=== PATIENT | female | born 1980 | race Hispanic/Latino ===

== ENCOUNTER 2020-04-27 19:59 | Emergency (ER) | payer SELFPAY ==
--- OUTSIDE RECORDS SUMMARY | 2020-04-27 20:01 | XMS REPORT | Continuity of Care Document ---
:1980 Author Organization [facility] t Address [address] [place] [address] Care Team Providers Name Role Phone Unavailable Unavailable Unavailable Problems This patient has no known problems. Allergies, Adverse Reactions, Alerts This patient has no known allergies or adverse reactions. Medications This patient has no known medications. Procedures This patient has no known procedures. Results This patient has no known results.
[2020-04-27] MEDS ORDERED: NA CHLORIDE 0.9% 250 ML ONE (20:43)
[2020-04-27] MEDS ORDERED: NA CHLORIDE 0.9% 0 ML ONE (20:43)
[2020-04-27] MEDS ORDERED: CEFTRIAXONE/SWI 1gm 1 GM/10 ML SYR ONE (20:43)
[2020-04-27] MEDS ORDERED: AZITHROMYCIN 500 MG INJ IVPB ONE (20:43)
[2020-04-27] MEDS ORDERED: dexAMETHasone 10 MG/ML VIAL ONE ×2 (20:43→21:33)
[2020-04-27] MEDS ORDERED: ACETAMINOPHEN 325 MG TABLET ONE (20:43)
[2020-04-27 21:02] LABS: Basophils % 0.4 % (0-1.3); Hematocrit 40.4 % (36.0-45.0); Lymphocytes % 16.7 % (15.3-44.8); MPV 8.5 fL (7.6-11.3); RBC Red Blood Cell Count 4.45 M/uL (3.86-4.86)
[2020-04-27 21:18] LABS: ALT/SGPT 42 U/L (12-78); AST/SGOT 25 U/L (15-37); Albumin 3.1 g/dL (3.4-5.0); Alkaline Phosphatase 130 U/L (45-117); BUN Blood Urea Nitrogen 9 mg/dL (7-18); Bicarbonate 25 mmol/L (21-32); Bilirubin Direct 0.1 mg/dL (0-0.2); Bilirubin Total 0.4 mg/dL (0.2-1.0); Glucose Level 247 mg/dL (74-106); Magnesium 1.9 mg/dL (1.8-2.4); NT PRO-BNP 14 pg/mL (<125); Protein, Total 8.3 g/dL (6.4-8.2); Sodium Level 136 mmol/L (136-145); Troponin (Emerg Dept Use Only) < 0.02 ng/mL (0.0-0.045)
[2020-04-27] MEDS ORDERED: ALBUTEROL INHALER 60 PUFF/8 GM IH ONE (21:18)
[2020-04-27] MEDS ORDERED: ASPIRIN EC 81 MG TAB PO ONE (21:18)
[2020-04-27] MEDS ORDERED: HYDROCODONE/CHLORPHEN 5 ML/OSYR ONE (21:18)
[2020-04-27] MEDS ORDERED: NA CHLORIDE 0.9% 1,000 ML ONE (21:18)
[2020-04-27] MEDS ORDERED: FAMOTIDINE 20 MG/2 ML VIAL IV ONE (21:18)
--- NOTE | 2020-04-27 21:18 | RAD REPORT ---
EXAM DESCRIPTION: RAD - Chest Single View - 04/27/2020 9:02 pm CLINICAL HISTORY: COUGH, shortness of breath, chest pain COMPARISON: None TECHNIQUE: AP portable chest image was obtained 04/27/2020 9:02 pm . FINDINGS: Lung volumes are very low. Lung base atelectasis present bilaterally. Lung markings are ac centuated. No convincing evidence for infiltrate. Heart and vasculature are normal. No measurable ple ural effusion and no pneumothorax. No acute bony abnormality seen. No acute aortic findings suspected . IMPRESSION: Limited portable study showing shallow inspiration and lung base atelectasis. Minimal infiltrates could be obscured. Repeat imaging with improved inspiratory effort could be perfo rmed as warranted.
--- NOTE | 2020-04-27 23:11 | EDPHYS ---
Physician Documentation [facility] Name: Carol Polo Age: 39 yrs Sex: Female : 1980 Arrival Date: 04/27/2020 Time: 20:09 Bed 18 Private MD: ED Physician Clayton Lorenzo HPI: 04/27 20:51 This 39 yrs old Female presents to ER via Ambulatory with complaints of lenin Shortness Of Breath, Chest Pain. 20:51 The patient has shortness of breath at rest, with light activity. Onset: The lenin symptoms/episode began/occurred gradually, 3 day(s) ago. Duration: The symptoms are continuous, and are steadily getting worse. The patient's shortness of breath is aggravated by coughing. Associated signs and symptoms: Pertinent positives: chest pain, non-productive cough, fever. Severity of symptoms: At their worst the symptoms were mild moderate in the emergency department the symptoms are unchanged. The patient has not experienced similar symptoms in the past. ICU CLERK: 23:29 LMP N/A - control method ks7 Historical: - Allergies: 20:18 No Known Allergies; mg2 - Home Meds: 20:19 levemir [Active]; lantus [Active]; Lisinopril Oral [Active]; amlodipine oral [Active]; mg2 Iron CR Oral [Active]; - PMHx: 20:18 Hypertension; Hyperlipidemia; Diabetes - IDDM; mg2 - PSHx: 20:18 ; mg2 - Immunization history:: Flu vaccine is up to date. - Social history:: Smoking status: Patient denies any tobacco usage or history of. Patient/guardian denies using alcohol, street drugs, IV drugs. ROS: 20:53 Eyes: Negative for injury, pain, redness, and discharge, ENT: Negative for injury, lenin pain, and discharge, Neck: Negative for injury, pain, and swelling, Abdomen/GI: Negative for abdominal pain, nausea, vomiting, diarrhea, and constipation, Back: Negative for injury and pain, : Negative for injury, bleeding, discharge, and swelling, MS/Extremity: Negative for injury and deformity, Skin: Negative for injury, rash, and discoloration, Neuro: Negative for headache, weakness, numbness, tingling, and seizure, Psych: Negative for depression, anxiety, suicide ideation, homicidal ideation, and hallucinations, Allergy/Immunology: Negative for hives, rash, and allergies, Endocrine: Negative for neck swelling, polydipsia, polyuria, polyphagia, and marked weight changes, Hematologic/Lymphatic: Negative for swollen nodes, abnormal bleeding, and unusual bruising. 20:53 Constitutional: Positive for body aches, chills, fatigue, fever, malaise. 20:53 Cardiovascular: Positive for chest pain, palpitations. 20:53 Respiratory: Positive for cough, with no reported sputum, shortness of breath. Exam: 20:53 Head/Face: Normocephalic, atraumatic. Eyes: Pupils equal round and reactive to light, lenin extra-ocular motions intact. Lids and lashes normal. Conjunctiva and sclera are non-icteric and not injected. Cornea within normal limits. Periorbital areas with no swelling, redness, or edema. ENT: Nares patent. No nasal discharge, no septal abnormalities noted. Tympanic membranes are normal and external auditory canals are clear. Oropharynx with no redness, swelling, or masses, exudates, or evidence of obstruction, uvula midline. Mucous membranes moist. Neck: Trachea midline, no thyromegaly or masses palpated, and no cervical lymphadenopathy. Supple, full range of motion without nuchal rigidity, or vertebral point tenderness. No Meningismus. Chest/axilla: Normal chest wall appearance and motion. Nontender with no deformity. No lesions are appreciated. Abdomen/GI: Soft, non-tender, with normal bowel sounds. No distension or tympany. No guarding or rebound. No evidence of tenderness throughout. Back: No spinal tenderness. No costovertebral tenderness. Full range of motion. Skin: Warm, dry with normal turgor. Normal color with no rashes, no lesions, and no evidence of cellulitis. MS/ Extremity: Pulses equal, no cyanosis. Neurovascular intact. Full, normal range of motion. Neuro: Awake and alert, GCS 15, oriented to person, place, time, and situation. Cranial nerves II-XII grossly intact. Motor strength 5/5 in all extremities. Sensory grossly intact. Cerebellar exam normal. Normal gait. Psych: Awake, alert, with orientation to person, place and time. Behavior, mood, and affect are within normal limits. 20:53 Constitutional: The patient appears febrile. 20:53 Cardiovascular: Rate: tachycardic, Rhythm: regular, Pulses: Pulses are 4+ in bilateral radial, brachial, femoral, popliteal, posterior tibial and and dorsalis pedis arteries.. Heart sounds: normal, Edema: is not appreciated, JVD: is not appreciated. 20:53 Respiratory: mild respiratory distress is noted, Respirations: labored breathing, that is mild, Breath sounds: rhonchi, that are mild, are scattered, Respiratory rate: 20 20:53 Musculoskeletal/extremity: DVT Exam: No signs of deep vein thrombosis. no pain, no swelling, no tenderness, negative Homans' sign noted on exam, no appreciated bluish discoloration, no erythema, no increased warmth. 21:07 ECG was reviewed by the Attending Physician. [facility] 23:07 Musculoskeletal/extremity: Exam is negative for Extremities: all appear grossly normal, lenin with no appreciated pain with palpation, ROM: no acute changes, intact in all extremities, full active range of motion, full passive range of motion, Circulation is intact in all extremities. Sensation intact. Compartment Syndrome exam of affected extremity: is normal. Vital Signs: 20:10 BP 136 / 98; Pulse 116; Resp 20; Temp 100.1; Pulse Ox 97% on R/A; Weight 90.72 kg; mg2 Height 5 ft. 5 in. (165.10 cm); 21:00 BP 139 / 87; Pulse 116; Resp 22; Pulse Ox 97% on R/A; Pain 7/10; ks7 21:01 BP 141 / 85; Pulse 117; Resp 22; Temp 100.1; Pulse Ox 97% on R/A; Pain 7/10; ks7 21:30 BP 133 / 81; Pulse 117; Resp 20; Pulse Ox 96% on R/A; Pain 7/10; ks7 22:00 BP 124 / 75; Pulse 124; Resp 20; Temp 99.9(O); Pulse Ox 96% ; Pain 3/10; ks7 23:13 BP 137 / 86; Pulse 107; Resp 18; Temp 99.3(O); Pulse Ox 95% on R/A; Pain 0/10; ks7 23:41 Pain 0/10; ks7 20:10 Body Mass Index 33.28 (90.72 kg, 165.10 cm) mg2 MDM: 20:17 Patient medically screened. [facility] 20:57 Data reviewed: vital signs, nurses notes, lab test result(s), EKG, radiologic studies, lenin plain films. 20:59 Differential diagnosis: asthma, Bronchitis CHF exacerbation, Chronic Obstructive lenin Pulmonary Disease bronchitis, flu, viral Infection, bacterial infection, URI, bronchitis, pneumonia pneumonia, pulmonary edema, Pulmonary Embolism reactive airway disease, Unstable Angina. Antibiotic administration: Rocephin and Zithromax given. The patient's Wells Deep Vein Thrombosis Score was calculated as follows: Total Score: 0-2 Pts- Low Risk. The patient's pulmonary embolism risk score was calculated as follows: Total Score: 0-2 points. This patient was found to be at low risk for a pulmonary embolism by using the Well's assessment criteria. Immunization status:. Data interpreted: monitoring coordinator: rate is 116 beats/min, rhythm is normal sinus rhythm, Pulse oximetry: on room air is 97 %. Test interpretation: by ED physician or midlevel provider: plain radiologic studies. Counseling: I had a detailed discussion with the patient and/or guardian regarding: the historical points, exam findings, and any diagnostic results supporting the discharge/admit diagnosis, lab results, radiology results, the need for outpatient follow up, for definitive care, a fitness management director. ED course: pt much impoved, sats 95%. 23:08 ED course: much improved, feeling better, plan explained, pt understands. [facility] 04/27 20:28 Order name: Basic Metabolic Panel [facility] 04/27 20:28 Order name: CBC with Diff [facility] 04/27 20:28 Order name: LFT's [facility] 04/27 20:28 Order name: Magnesium [facility] 04/27 20:28 Order name: NT PRO-BNP [facility] 04/27 20:28 Order name: Troponin (emerg Dept Use Only) [facility] 04/27 20:28 Order name: Blood Culture Adult (2) [facility] 04/27 20:28 Order name: COVID-19 [facility] 04/27 20:28 Order name: Lactate [facility] 04/27 20:28 Order name: Procalcitonin [facility] 04/27 20:28 Order name: D-Dimer [facility] 04/27 21:11 Order name: CBC with Automated Diff; Complete Time: 21:42 EDMS 04/27 21:16 Order name: Lactate; Complete Time: 21:42 EDMS 04/27 21:18 Order name: Basic Metabolic Panel; Complete Time: 21:42 EDMS 04/27 20:28 Order name: XRAY Chest (1 view) [facility] 04/27 21:10 Order name: INCENTIVE SPIROMETRY [facility] 04/27 21:18 Order name: Liver (Hepatic) Function; Complete Time: 21:42 EDCT 04/27 21:18 Order name: Troponin (Emerg Dept Use Only); Complete Time: 21:42 EDCT 04/27 21:18 Order name: NT PRO-BNP; Complete Time: 21:42 EDCT 04/27 21:18 Order name: Magnesium; Complete Time: 21:42 EDCT 04/27 21:18 Order name: RAD; Complete Time: 21:42 EDMS 04/27 23:07 Order name: D-Dimer; Complete Time: 23:45 EDCT 04/27 23:09 Order name: Procalcitonin; Complete Time: 23:45 [facility] 04/27 20:28 Order name: EKG; Complete Time: 20:29 [facility] 04/27 20:28 Order name: Cardiac monitoring; Complete Time: 20:56 [facility] 04/27 20:28 Order name: EKG - Nurse/Tech; Complete Time: 20:56 [facility] 04/27 20:28 Order name: IV Saline Lock; Complete Time: 20:56 [facility] 04/27 20:28 Order name: Labs collected and sent; Complete Time: 20:56 [facility] 04/27 20:28 Order name: O2 Per Protocol; Complete Time: 20:56 [facility] 04/27 20:28 Order name: O2 Sat Monitoring; Complete Time: 20:56 [facility] EC:07 Rate is 112 beats/min. Rhythm is regular. QRS [place] is Normal. [place] interval is normal. [facility] QRS interval is normal. QT interval is normal. No Q waves. T waves are Normal. No ST changes noted. Clinical impression: Sinus tachycardia and No evidence of ischemia. Interpreted by me. Reviewed by me. Administered Medications: Discontinued: NS 0.9% 500 ml IV at bolus once Discontinued: Zithromax 500 mg IVPB once over 1 hrs; mix in 250 mL NS Discontinued: Rocephin 1 grams IV at per protocol once; Given slow IV push per pharmacy instructions Discontinued: NS 0.9% 1000 ml IV at 125 ml/hr continuous 20:45 Drug: Tylenol 650 mg Route: PO; ks7 23:41 Follow up: Pain 0/10 Adult ks7 20:55 Drug: Rocephin 1 grams Route: IV; Rate: per protocol; Site: left antecubital; 21:21 Drug: NS 0.9% 500 ml Route: IV; Rate: bolus; Site: left antecubital; 21:25 Drug: NS 0.9% 1000 ml Route: IV; Rate: 125 ml/hr; Site: left antecubital; 21:25 Drug: Albuterol HFA Inhaler 4 puffs Route: Inhalation; :25 Drug: Tussionex Pennkinetic ER 5 ml Route: PO; :26 Drug: Aspirin 162 mg Route: PO; :27 Drug: Pepcid 20 mg Route: IVP; Site: left antecubital; : Drug: Zithromax 500 mg Route: IVPB; Infused Over: 1 hrs; Site: left antecubital; : Drug: Decadron - Dexamethasone 6 mg Route: IVP; Site: left antecubital; Disposition: 04/27/20 23:10 Discharged to Home. Impression: Dyspnea, SARS-associated coronavirus as the cause of diseases classified elsewhere, Fever, unspecified, Type 1 diabetes mellitus. - Condition is Stable. - Discharge Instructions: Type 1 Diabetes Mellitus, Diagnosis, Adult, Fever, Adult, Shortness of Breath, Shortness of Breath, [id number], Incentive Spirometer, Diabetes Mellitus and Food, Aspirin and Your Heart, Type 1 Diabetes Mellitus, Self Care, Adult, Type 1 Diabetes Mellitus, Diagnosis, Adult, [id number], COVID-19. - Prescriptions for dexamethasone 2 mg Oral tablet - take 1 tablet by ORAL route 3 times per day; 15 tablet. Pepcid 20 mg Oral Tablet - take 1 tablet by ORAL route every 12 hours for 10 days; 20 tablet. Albuterol Sulfate 90 mcg/actuation - inhale 1-2 puff by INHALATION route every 4-6 hours; 1 Inhaler. Zithromax 500 mg Oral Tablet - take 1 tablet by ORAL route once daily for 5 days; 5 tablet. - Medication Reconciliation Form, Thank You Letter, Antibiotic Education, Prescription Opioid Use form. - Follow up: Private Physician; When: 2 - 3 days; Reason: Recheck today's complaints, Continuance of care, Re-evaluation by your physician. Follow up: Fab Reddy; When: 2 - 3 days; Reason: Recheck today's complaints, Continuance of care, Re-evaluation by your physician. - Problem is new. - Symptoms have improved. Signatures: Dispatcher [employer] EDClayton Gan MD MD cha Gardose, Michele, RN RN mg2 Songcuan, Kathleen, RN RN ks7 Corrections: (The following items were deleted from the chart) 23:47 23:10 04/27/2020 23:10 Discharged to Home. Impression: Dyspnea; SARS-associated ks7 coronavirus as the cause of diseases classified elsewhere; Fever, unspecified; Type 1 diabetes mellitus. Condition is Stable. Discharge Instructions: Type 1 Diabetes Mellitus, Diagnosis, Adult, Fever, Adult, Shortness of Breath, Shortness of Breath, [id number], Diabetes Mellitus and Food, Aspirin and Your Heart, Type 1 Diabetes Mellitus, Self Care, Adult, Type 1 Diabetes Mellitus, Diagnosis, Adult, [id number], COVID-19, Incentive Spirometer. Prescriptions for dexamethasone 2 mg Oral tablet - take 1 tablet by ORAL route 3 times per day; 21 tablet, Pepcid 20 mg Oral Tablet - take 1 tablet by ORAL route every 12 hours for 10 days; 20 tablet, Albuterol Sulfate 90 mcg/actuation - inhale 1-2 puff by INHALATION route every 4-6 hours; 1 Inhaler, Zithromax 500 mg Oral Tablet - take 1 tablet by ORAL route once daily for 5 days; 5 tablet. and Forms are Medication Reconciliation Form, Thank You Letter, Antibiotic Education, Prescription Opioid Use. Follow up: Private Physician; When: 2 - 3 days; Reason: Recheck today's complaints, Continuance of care, Re-evaluation by your physician. Follow up: Fab Reddy; When: 2 - 3 days; Reason: Recheck today's complaints, Continuance of care, Re-evaluation by your physician. Problem is new. Symptoms have improved. lenin
--- NOTE | 2020-04-27 23:11 | ER ---
Nurse's Notes [facility] Name: Carol Polo Age: 39 yrs Sex: Female : 1980 Arrival Date: 04/27/2020 Time: 20:09 Bed 18 Private MD: Diagnosis: Dyspnea;SARS-associated coronavirus as the cause of diseases classified elsewhere;Fever, unspecified;Type 1 diabetes mellitus Presentation: 04/27 20:10 Chief complaint: Patient states: i have shortness of breath, chest pain, cough, and mg2 fever for 2 weeks. is covid positive tested last April 23. Coronavirus screen: Client denies travel out of the [place] in the last 14 days. cough unrelated to allergies, difficulty breathing, fever, shortness of breath, Client presents with at least one sign or symptom that may indicate coronavirus-19. Standard/surgical mask placed on the client. Provider contacted for isolation considerations. Ebola Screen: No symptoms or risks identified at this time. 20:10 Method Of Arrival: Ambulatory mg2 20:10 Initial Sepsis Screen: Does the patient meet any 2 criteria? Temp <36.0*C (96.8*F)) or mg2 > 38.3*C (100.9*F). HR > 90 bpm. Does the patient have a suspected source of infection? Yes: Productive cough/pneumonia. Risk Assessment: Do you want to hurt yourself or someone else? Patient reports no desire to harm self or others. Onset of symptoms was March 2020. 20:10 Acuity: IRENE 3 mg2 Triage Assessment: 20:30 General: Appears distressed, uncomfortable. Respiratory: Breath sounds are clear ks7 bilaterally. in right upper lobe and left upper lobe Breath sounds are diminished bilaterally. in left posterior lower lobe, right posterior middle lobe and right posterior lower lobe. Respiratory: Reports shortness of breath cough that is non-productive, pain with cough the patient has moderate shortness of breath. 23:44 General: Appears. ks7 [employer]: 23:29 LMP N/A - control method ks7 Historical: - Allergies: 20:18 No Known Allergies; mg2 - Home Meds: 20:19 levemir [Active]; lantus [Active]; Lisinopril Oral [Active]; amlodipine oral [Active]; mg2 Iron CR Oral [Active]; - PMHx: 20:18 Hypertension; Hyperlipidemia; Diabetes - IDDM; mg2 - PSHx: 20:18 ; mg2 - Immunization history:: Flu vaccine is up to date. - Social history:: Smoking status: Patient denies any tobacco usage or history of. Patient/guardian denies using alcohol, street drugs, IV drugs. Screenin:59 Abuse screen: Denies threats or abuse. Denies injuries from another. Nutritional ks7 screening: No deficits noted. Tuberculosis screening: No symptoms or risk factors identified. Fall Risk None identified. Assessment: 20:12 General: code sepsis 700 called. mg2 20:59 Pain: Complains of pain in chest Pain does not radiate. Pain currently is 7 out of 10 ks7 on a pain scale. Quality of pain is described as sharp, Pain began 2-3 days ago. Is continuous, Alleviated by rest, Aggravated by increased activity, cough deep breathing. Cardiovascular: Rhythm is regular. Respiratory: Airway is patent Respiratory effort is even, shallow, Breath sounds are clear bilaterally. in right upper lobe and left upper lobe Breath sounds are diminished bilaterally. in right middle lobe, left lower lobe, right lower lobe, left posterior lower lobe, right posterior middle lobe and right posterior lower lobe. 21:02 General: Appears uncomfortable, obese, . Behavior is cooperative, pt c/o increased sob, ks7 cp with cough and deep breathing, dry cough. pt tested positive for covid last week. pt sx started 3 days ago. pt aa0x4, MOSES, weak, body aches.. 21:37 Reassessment: Patient and/or family updated on plan of care and expected duration. Pain ks7 level reassessed. pt resting, no s/s of respiratory distress. 22:19 Reassessment: Patient and/or family updated on plan of care and expected duration. Pain ks7 level reassessed. Patient states feeling better. 23:30 Reassessment: Patient states feeling better. Patient states symptoms have improved. ks7 Vital Signs: 20:10 BP 136 / 98; Pulse 116; Resp 20; Temp 100.1; Pulse Ox 97% on R/A; Weight 90.72 kg; mg2 Height 5 ft. 5 in. (165.10 cm); 21:00 BP 139 / 87; Pulse 116; Resp 22; Pulse Ox 97% on R/A; Pain 7/10; ks7 21:01 BP 141 / 85; Pulse 117; Resp 22; Temp 100.1; Pulse Ox 97% on R/A; Pain 7/10; ks7 21:30 BP 133 / 81; Pulse 117; Resp 20; Pulse Ox 96% on R/A; Pain 7/10; ks7 22:00 BP 124 / 75; Pulse 124; Resp 20; Temp 99.9(O); Pulse Ox 96% ; Pain 3/10; ks7 23:13 BP 137 / 86; Pulse 107; Resp 18; Temp 99.3(O); Pulse Ox 95% on R/A; Pain 0/10; ks7 23:41 Pain 0/10; ks7 20:10 Body Mass Index 33.28 (90.72 kg, 165.10 cm) mg2 ED Course: 20:09 Patient arrived in ED. fj1 20:17 Clayton Lorenzo MD is Attending Physician. lenin 20:17 Triage completed. mg2 20:18 Arm band placed on. mg2 20:55 Bella Harris, ISABEL is Primary Nurse. ks7 20:55 D-Dimer Sent. ks7 20:55 Procalcitonin Sent. ks7 20:55 Lactate Sent. ks7 20:55 COVID-19 Sent. ks7 20:56 Blood Culture Adult (2) Sent. ks7 20:56 Basic Metabolic Panel Sent. ks7 20:56 CBC with Diff Sent. ks7 20:57 LFT's Sent. ks7 20:57 Magnesium Sent. ks7 20:57 NT PRO-BNP Sent. ks7 20:57 Troponin (emerg Dept Use Only) Sent. ks7 20:57 XRAY Chest (1 view) Sent. ks7 20:58 No provider procedures requiring assistance completed. Inserted saline lock: 20 gauge ks7 in left antecubital area, using aseptic technique. Blood collected. 20:59 Patient has correct armband on for positive identification. Placed in gown. Bed in low ks7 position. Call light in reach. Side rails up X2. 21:36 INCENTIVE SPIROMETRY Sent. ks7 23:09 Fab Reddy MD is Referral Physician. lenin 23:43 No apparent distress. ks7 23:43 IV discontinued, intact, bleeding controlled, No redness/swelling at site. Pressure ks7 dressing applied. Administered Medications: Discontinued: NS 0.9% 500 ml IV at bolus once Discontinued: Zithromax 500 mg IVPB once over 1 hrs; mix in 250 mL NS Discontinued: Rocephin 1 grams IV at per protocol once; Given slow IV push per pharmacy instructions Discontinued: NS 0.9% 1000 ml IV at 125 ml/hr continuous 20:45 Drug: Tylenol 650 mg Route: PO; ks7 23:41 Follow up: Pain 0/10 Adult ks7 20:55 Drug: Rocephin 1 grams Route: IV; Rate: per protocol; Site: left antecubital; ks7 21:21 Drug: NS 0.9% 500 ml Route: IV; Rate: bolus; Site: left antecubital; ks7 21:25 Drug: NS 0.9% 1000 ml Route: IV; Rate: 125 ml/hr; Site: left antecubital; ks7 21:25 Drug: Albuterol HFA Inhaler 4 puffs Route: Inhalation; ks7 21:25 Drug: Tussionex Pennkinetic ER 5 ml Route: PO; ks7 21:26 Drug: Aspirin 162 mg Route: PO; ks7 21:27 Drug: Pepcid 20 mg Route: IVP; Site: left antecubital; ks7 21:30 Drug: Zithromax 500 mg Route: IVPB; Infused Over: 1 hrs; Site: left antecubital; ks7 21:30 Drug: Decadron - Dexamethasone 6 mg Route: IVP; Site: left antecubital; ks7 Outcome: 23:10 Discharge ordered by MD. phelps 23:43 Discharged to home ambulatory. ks7 23:43 Condition: good 23:43 Discharge instructions given to patient, Instructed on discharge instructions, medication usage, Demonstrated understanding of instructions, medications, Prescriptions given X 4. 23:47 Patient left the ED. ks7 Addendum: 05/01/2020 12:00 Addendum: COVID-19 Result: Positive result giiven to ED physician to notify pt. i w Physician: Chad Newby MD Physician was able to contact pt and pt was notified of positive COVID-19 swab result. Physician answered pt questions. Signatures: Clayton Lorenzo MD MD cha Williams, Irene RN ISABEL iw Henry Oakes RN RN Jose Manuel Morin [facility] Bella Harris RN RN ks7 Corrections: (The following items were deleted from the chart) 04/27 22:19 22:00 BP 124 / 75; Pulse 124bpm; Resp 20bpm; Pulse Ox 96%; ks7 ks7 05/01 14:02 14:01 Addendum: COVID-19 Result: Positive result giiven to ED physician to notify pt. iw Physician: Chad Newby MD Physician was able to contact pt and pt was notified of positive COVID-19 swab result. Physician answered pt questions. iw
[2020-04-28 00:30] VITALS: BP 137/86; TEMP 99.3; O2SAT 95
== END 2020-04-27 23:47 | disposition home or self-care (01) ==
LOC: ER 19:59
DX: U07.1 COVID-19 (principal); R50.9 Fever, unspecified; E10.9 Type 1 diabetes mellitus without complications; I10 Essential (primary) hypertension; E78.5 Hyperlipidemia, unspecified; Z79.4 Long term (current) use of insulin
CPT/HCPCS: 36415; 71045; 80048; 80076; 83605; 83735; 83880; 84145; 84484; 85025; 85379; 87040; 93005; 96374; 96375; 99284; J0456; J0696; J1100; J7030; J7040; J7050; U0002